=== PATIENT | male | born 1975 | race Caucasian/White ===

== ENCOUNTER 2018-11-21 12:34 | Observation (INO) | payer OTHER, SELFPAY ==
[2018-11-21 12:36] VITALS: BP 156/99; PULSE 78; RESP 16; TEMP 36.8; O2SAT 97; BMI 41.9
--- NOTE | 2018-11-21 12:42 | CT_ITS ---
STUDY: CT ABDOMEN AND PELVIS WITHOUT CONTRAST REASON FOR EXAM: Male, 42 years old. Kidneys down. Severe back pain. RADIATION DOSAGE (If Supplied By Facility): CTDIvol = ( 33.77 ) mGy, DLP = ( 2147.70 ) mGycm TECHNIQUE: Transaxial images were obtained from the dome of the diaphragm to the symphysis pubis without oral contrast, and without intravenous contrast. Sagittal and coronal images were reconstructed. Individualized dose optimization techniques were used for this CT. COMPARISON: None. FINDINGS: The visualized lung bases are unremarkable. The visualized portions of the heart are within normal limits. Normal liver. There are mobile calcified gallstones within the gallbladder fundus. There is no wall thickening or pericholecystic inflammatory process. There is no biliary ductal dilatation. Normal spleen. Normal pancreas. Normal bilateral adrenal glands. Normal right kidney. Normal left kidney. Normal bilateral ureters. Normal visualized stomach. Normal small intestine. Normal colon. The appendix is visualized and appears normal. There is diffuse atherosclerotic calcification of the abdominal aorta, without a demonstrated aneurysm. Normal inferior vena cava. Normal retroperitoneum. Normal urinary bladder. Normal prostate. There is no pelvic lymphadenopathy or mass. No free air or free fluid is seen within the peritoneal cavity. Normal abdominal wall. There are degenerative changes of the thoracolumbar spine. This is most marked at L4-5 where there is mild spinal stenosis. There is posterior fusion of L4-[address]/Abdomen/Pelvis without Cont IMPRESSION: 1. No evidence of renal, ureteral or urinary bladder abnormality. 2. Surgical changes and degenerative changes of the lower lumbar spine. 3. Gallstones without acute cholecystitis. 4. No other evidence of abdominal or pelvic abnormality. 5. Atherosclerotic changes of the abdominal aorta. Electronically Signed: Zeke Hawkins DO at 14:11 EST Tel [phone], Service support ,
--- NOTE | 2018-11-21 12:43 | ED.VISSUMM ---
- ER Visit Summary Date of Service: 11/21/18 Chief Complaint: Back pain History of Present Illness: The patient is a 42 M presents to the emergency department with atraumatic back pain. The patient has a history of prior back pain. He had multiple surgeries. He had discectomy with fusion. His last surgery was 6 years ago. He states over the past 4 days, he had a dull ache in his mid back that radiated in the left side. He states going down his leg and radiating to his testicle. He states normally, the pain is usually on the right. He denies any injury. He denies any fevers or chills. He had no problems with bowel or bladder. He has taken [id number] medication with little improvement. Physical Examination: Afebrile, vitals unremarkable. Well-appearing female no acute distress. Head is normocephalic, atraumatic. Pupil's equal round reactive, extraocular muscles intact. Neck supple. Heart regular rate and rhythm. Lungs clear, chest nontender. Abdomen soft, nontender, nondistended. No pulsatile mass. Patient has paraspinal tenderness in the lumbar area, but no bony tenderness. Straight leg raise is negative bilaterally. 2+ symmetric lower extremity pulses. 2+ reflexes. No clonus. No weakness of dorsiflexion, plantar flexion, or extensor hallucis longus bilaterally. Test Results: [] Emergency Department Course and Treatment: The patient's symptoms do seem most consistent with a radiculopathy. He has pain into his left buttock and left testicle. He has had no bowel or bladder problems. He was given IV analgesics with marked improvement of his pain. He was more comfortable. Screening labs obtained. His hemoglobin is mildly elevated, but he is a smoker. I did obtain CT imaging of the abdomen pelvis to rule out AAA or other dangerous process. This is unremarkable. There is marked postsurgical change in the back, but no fracture. Reevaluation, he is still rather uncomfortable. He was given IV Dilaudid. The patient still cannot stand to get up to the side of the bed. He has no weakness. However, given his significant pain despite multiple therapies, I do for the patient is in require observation for pain control and potential MRI. Treatment Plan: [] Disposition: Admission Impression: 1. Acute low back pain with radiculopathy This note was generated with Dragon dictation software. It may contain incorrect words, spelling, and punctuation that were not noted in review of the chart prior to signing ED Disposition - Plan for ED Patient: Chief Complaint: Back Instructions: ED Sciatica Prescriptions: Oxycodone HCl/Acetaminophen [Percocet 5/325] 1 tab PO Q6H PRN PRN 3 Days #12 tab PRN Reason: Pain MethylPREDNISolone DosePak [Medrol DosePak] 4 mg PO UD #1 box Naproxen [Naprosyn] 500 mg PO BID PRN #20 tab Referrals: Tram Stoner PA [Primary Care Provider] -
[2018-11-21] MEDS: 0.9% Normal Saline 1,000 ML 250 ML IV (13:06)
[2018-11-21] MEDS: Ondansetron 4 MG/2 ML Vial IV (13:06)
[2018-11-21] MEDS: morphine 8 MG/ML Syringe IV (13:08)
[2018-11-21] MEDS: Ketorolac 30 MG/ML Syringe IV (13:08)
[2018-11-21 13:19] LABS: Absolute Neutrophil Count 8.2 X10^3/uL (2.0-7.7); Basophil# 0.07 X10^3/uL; Basophil% 0.6 % (0-1); Eosinophil# 0.17 X10^3/uL; Eosinophils% 1.5 % (0-5); Hematocrit 52.9 % (40-54); Lymphocyte % 18.2 % (19-41); Mean Corp Hgb Conc 34.4 g/gl (32-36); Mean Corpuscular Hgb 30.2 pg (27.0-32.0); Mean Corpuscular Volume 87.9 fL (80-94); Monocyte# 1.02 X10^3/uL; Monocyte% 8.8 % (0-10); Neutrophil # 8.16 X10^3/uL (2.7-7.7); Neutrophil % 70.6 % (47-70); Platelet Count 327 K/mm3 (150-450); RBC Distribution Width CV 13.7 % (11.6-14.6); RBC Distribution Width SD 44.3 fl (35.1-43.9); Red Blood Count 6.02 M/mm3 (4.6-6.2); White Blood Count 11.6 K/mm3 (4.4-11.0)
[2018-11-21 13:20] LABS: Hemoglobin 18.2 g/dl (13.0-16.5); POSITIVE COUNT NO; POSITIVE DIFFERENTIAL NO; POSITIVE MORPHOLOGY NO
[2018-11-21 13:28] LABS: Anion Gap 7 (5-15); BUN 13 mg/dL (7-18); BUN/Creat Ratio 14.8 RATIO (10-20); Calcium,Total 8.8 mg/dL (8.5-10.1); Chloride 104 mmol/L (98-107); Creatinine, Serum 0.88 mg/dL (0.70-1.30); EST Glomerular Filtration Rate 100 mL/min (>60); Est Glom Filt Rate - Afr Amer 121 mL/min (>60); Estimated Creatinine Clearance 124.55 ml/min; Glucose 152 mg/dL (74-106); Potassium 3.9 mmol/L (3.5-5.1); Sodium Level 136 mmol/L (136-145)
[2018-11-21 14:22] VITALS: BP 158/84; PULSE 65; RESP 16; O2SAT 94
[2018-11-21] MEDS: HYDROmorphone 1 MG/ML Syringe IV ×3 (14:22→23:46)
[2018-11-21 14:32] VITALS: BP 153/84; PULSE 78; RESP 16; O2SAT 98
[2018-11-21] MEDS: Orphenadrine 60 MG/2 ML Ampul IV (14:58)
--- NOTE | 2018-11-21 14:58 | NURSING ---
MED SURG INTRACTABLE BACK PAIN ASHELFAH
[2018-11-21 15:02] VITALS: BP 153/78; PULSE 82; RESP 16; O2SAT 98
[2018-11-21] MEDS: Lidocaine 5% Patch 1 PATCH TOPICAL (15:10)
--- NOTE | 2018-11-21 15:10 | PCM.HP.STD ---
Problem List (1) Intractable low back pain Status: Acute (2) Chronic back pain Status: Chronic (3) Type 2 diabetes mellitus Status: Chronic (4) Hyperlipidemia Status: Chronic (5) Hypertension Status: Chronic History of Present Illness Date of Admission: 11/21/18 Chief Complaint: Low back pain. The patient is a 42 year old M with past medical history as mentioned above presented to the emergency room because of low back pain. His symptoms started around 4 days ago with low back pain, described as pulling pain sometimes sharp, 10 out of 10 in severity, with minimal radiation to the left thigh and around the testicles, aggravated by even slight movement, sitting or standing, minimally relieved with rest. He denied recent fall or trauma. He had a history of chronic back pain status post multiple back surgeries including vertebral fusions and discectomy, last surgery was 6 years ago. He denied urine or stool incontinence. He denied perianal numbness or tingling. In the emergency department, his blood pressure was slightly elevated, other vital signs were stable. His routine blood work was remarkable for minimal leukocytosis, hemoglobin of 18.2, otherwise normal. CT scan abdomen and pelvis without contrast revealed no evidence of acute intra-abdominal pathology, revealed degenerative changes of the thoracolumbar spine most marked at L4-L5 with mild spinal stenosis and prior L4-L5 fusion and L5 laminectomy. Patient received IV fluids, IV morphine, IV Toradol and IV Dilaudid in the ER as well as IV Norflex and his back pain minimally improved but he is able to put any weight on his feet. He is being admitted for intractable low back pain, spinal canal stenosis in context of history of chronic back pain and multiple back surgeries. Past Medical History Past Medical History (Chronic Problems): Chronic Problems Chronic back pain (Chronic) Type 2 diabetes mellitus (Chronic) Hyperlipidemia (Chronic) Hypertension (Chronic) Allergies No Known Allergies Allergy (Verified 11/21/18 12:35) Home Medications: Ambulatory Orders Medication Instructions Recorded Atorvastatin Calcium [Lipitor] 10 mg PO QHS 11/21/18 Exenatide [Byetta ([facility])] 11/21/18 Lisinopril/Hydrochlorothiazide 1 tab PO DAILY 11/21/18 [Lisinopril-Hctz 20-25 mg Tab] Metformin HCl [Metformin ER 1,000 mg PO DAILY 11/21/18 Gastric] MethylPREDNISolone DosePak [Medrol 4 mg PO UD #1 box 11/21/18 DosePak] Naproxen [Naprosyn] 500 mg PO BID PRN #20 tab 11/21/18 Oxycodone HCl/Acetaminophen 1 tab PO Q6H PRN PRN 3 Days #12 tab 11/21/18 [Percocet 5/325] Sitagliptin Phos/Metformin HCl 1 each PO DAILY 11/21/18 [Janumet 50-1,000 MG Tablet] Surgical History: - - Back surgeries x4, laminectomy, discectomy, fusion. Psychiatric History: No pertinent psych hx Lives: Spouse/ Significant Other Smoking Status: Current every day smoker Tobacco Use: Cigarettes Alcohol: Occasional Drugs: None - *Family History Maternal History Items: No pertinent history Paternal History Items: No pertinent history Review of Systems Constitutional: Denies: Anorexia, Chills, Fever, Weakness Eyes: Denies: Blurred vision, Double vision, Drainage, Redness HEENT: Denies: Difficulty Hearing, Ear Pain, Eye Pain, Nasal Congestion, Sore Throat Cardiovascular: Denies: Chest Pain, Chest Pressure, Edema, Heaviness, Light Headedness, Palpitations, Syncope Respiratory: Denies: Cough, Pleuritic Pain, Shortness of Breath, Sputum production, Wheezing Gastrointestinal: Denies: Abdominal Pain, Constipation, Diarrhea, Nausea, Vomiting Genitourinary: Denies: Dysuria, Frequency, Hematuria Musculoskeletal: Reports: Back Pain. Denies: Arm Pain, Foot Pain Skin: Denies: Dryness, Rash Neurological: Denies: Balance problems, Double vision, Change in Speech, Slurred speech, Confusion, Focal weakness, Headaches, Incoordination, Numbness, Tingling Psychiatric: Denies: Anxiety, Depression Endocrine: Denies: Change in Body Habitus, Polydipsia VTE Information - Inpt Only VTE Present on Admission: No VTE Mechan Device Prophylaxis: None VTE Pharm Prophylaxis ordered?: Yes Patient Problems: Active and Suspected Problems Intractable low back pain (Acute) - Physical Exam General: Alert, Oriented x3, Cooperative, No apparent distress HEENT: Atraumatic, PERRLA, EOMI, Normocephalic Oral: Moist Mucosa, No Gingival or Mucosal Lesions/ Ulcerations Neck: Supple, No JVD, Negative Carotid Bruits, Trachea Midline, Thyroid Normal Size and Texture Lungs: Clear to auscultation, Normal air movement, No wheeze, No rales Cardiovascular: Regular rate, Regular Rhythm, Normal S1, Normal S2, PMI Normal Abdomen: Bowel Sounds Present, Soft, Non Tender, Non-Distended, No Hepato-splenomegaly, Obese Extremities: No clubbing, No cyanosis, No edema Skin: No rashes, No breakdown Lymphatic: No Cervical, Supraclavicular, or Inguinal Adenopathy Neurological: Cranial nerves II-XII grossly intact, Motor Exam 5/5 strength throughout Psych/Mental Status: Normal Affect, Appropriate, Alert and oriented to time, place, person, mood and affect Vital Signs Temp Pulse Resp BP Pulse Ox 98.3 F 82 16 153/78 H 98 11/21/18 12:36 11/21/18 15:02 11/21/18 15:02 11/21/18 15:02 11/21/18 15:02 Oxygen Delivery Method Room Air Weight: 326 lb 8.073 oz Body Mass Index (BMI) 41.9 Laboratory Tests Past 24 Hrs 11/21/18 11/21/18 13:00 13:00 WBC 11.6 H RBC 6.02 Hgb 18.2 H* Hct 52.9 MCV 87.9 MCH 30.2 MCHC 34.4 RDW 13.7 RDW Differential 44.3 H Plt Count 327 MPV 10.0 Immature Gran % (Auto) 0.300 Neut % (Auto) 70.6 H Lymph % (Auto) 18.2 L [place] % (Auto) 8.8 Eos % (Auto) 1.5 Baso % (Auto) 0.6 Absolute Neuts (auto) 8.2 H Absolute Lymphs (auto) 2.10 Total Counted Not Reportable Sodium 136 Potassium 3.9 Chloride 104 Carbon Dioxide 25.0 Anion Gap 7 BUN 13 Creatinine 0.88 Estim Creat Clear Calc 124.55 Est GFR (MDRD) Af Amer 121 Est GFR (MDRD) Non-Af 100 BUN/Creatinine Ratio 14.8 Glucose 152 H Calcium 8.8 Clinical Impression(s) from Imaging Studies Abdomen/Pelvis CT 11/21/18 12:42 IMPRESSION: 1. No evidence of renal, ureteral or urinary bladder abnormality. 2. Surgical changes and degenerative changes of the lower lumbar spine. 3. Gallstones without acute cholecystitis. 4. No other evidence of abdominal or pelvic abnormality. 5. Atherosclerotic changes of the abdominal aorta. Electronically Signed: Zeke Hawkins DO at 14:11 EST Tel [phone], Service support , Assessment/Plan All Active Problems Intractable low back pain (Acute) This is a 42 years old male patient presented to the emergency room because of low back pain in context of history of chronic back pain status post multiple back surgeries, receiving different IV pain medications without improvement and he is being admitted for intractable low back pain for treatment and evaluation. #1 intractable low back pain/spinal canal stenosis: Patient received IV Toradol, IV morphine, IV Dilaudid and IV Norflex in the ER with no improvement. He is not able to put any weight on his feet. Blood pressure slightly elevated. Routine blood work remarkable for hemoglobin of more than 18 g/dL, hemoconcentration, otherwise normal. CT scan abdomen and pelvis without contrast reviewed as above. Plan: Admit to [facility] floor, bedrest, ambulate as directed, IV Dilaudid as needed for pain, IV Decadron, OxyIR as needed, Flexeril as needed, MRI lumbar spine, IV fluids, Tylenol as needed, Zofran as needed, repeat CBC tomorrow morning, PT OT duration of treatment. #2 dehydration: Indicated by dry mucous membranes and elevated hemoglobin, hemoconcentration. Kidney function is normal. Plan: IV fluids, input output chart, repeat CBC tomorrow morning. #3 type 2 diabetes mellitus: ADA diet, Accu-Cheks, insulin sliding scale, continue metformin, Janumet and Byetta. #4 hypertension: Blood pressure slightly elevated because of pain, continue lisinopril, HCTZ, start IV hydralazine as needed. #5 hyperlipidemia: Continue statins. #6 DVT prophylaxis: Subcu Lovenox. This note was generated with [employer] dictation software. It may contain incorrect words, spelling, and punctuation that were not noted in checking the note before signing. Code Visit Inpatient E&M: 13512 Init Hosp L3
--- NOTE | 2018-11-21 15:14 | HP.PCM_ITS ---
Problem List (1) Intractable low back pain Status: Acute (2) Chronic back pain Status: Chronic (3) Type 2 diabetes mellitus Status: Chronic (4) Hyperlipidemia Status: Chronic (5) Hypertension Status: Chronic History of Present Illness Date of Admission: 11/21/18 Chief Complaint: Low back pain. The patient is a 42 year old M with past medical history as mentioned above presented to the emergency room because of low back pain. His symptoms started around 4 days ago with low back pain, described as pulling pain sometimes sharp, 10 out of 10 in severity, with minimal radiation to the left thigh and around the testicles, aggravated by even slight movement, sitting or standing, minim ally relieved with rest. He denied recent fall or trauma. He had a history of chronic back pain status post multiple back surgeries including vertebral fusions and discectomy, last surgery was 6 years ago. He denied urine or stool incontinence. He denied perianal numbness or tingling. In the emergency department, his blood pressure was slightly elevated, other vital signs were stable. His routine blood work was remarkable for minimal leukocytosis, hemoglobin of 18.2, otherwise normal. CT scan abdomen and pelvis without contrast revealed no evidence of acute intra-abdominal pathology, revealed degenerative changes of the thoracolumbar spine most marked at L4-L5 with mild spinal stenosis and prior L4-L5 fusion and L5 laminectomy. Patient received IV fluids, IV morphine, IV Toradol and IV Dilaudid in the ER as well as IV Norflex and his back pain minimally improved but he is able to put any weight on his feet. He is being admitted for intractable low back pain, spinal canal stenosis in context of history of chronic back pain and multiple back surgeries. Past Medical History Past Medical History (Chronic Problems): Chronic Problems Chronic back pain (Chronic) Type 2 diabetes mellitus (Chronic) Hyperlipidemia (Chronic) Hypertension (Chronic) Allergies No Known Allergies Allergy (Verified 11/21/18 12:35) Home Medications: Ambulatory Orders Medication Instructions Recorded Atorvastatin Calcium [Lipitor] 10 mg PO QHS 11/21/18 Exenatide [Byetta ([facility])] 11/21/18 Lisinopril/Hydrochlorothiazide 1 tab PO DAILY 11/21/18 [Lisinopril-Hctz 20-25 mg Tab] Metformin HCl [Metformin ER 1,000 mg PO DAILY 11/21/18 Gastric] MethylPREDNISolone DosePak [Medrol 4 mg PO UD #1 box 11/21/18 DosePak] Naproxen [Naprosyn] 500 mg PO BID PRN #20 tab 11/21/18 Oxycodone HCl/Acetaminophen 1 tab PO Q6H PRN PRN 3 Days #12 tab 11/21/18 [Percocet 5/325] Sitagliptin Phos/Metformin HCl 1 each PO DAILY 11/21/18 [Janumet 50-1,000 MG Tablet] Surgical History: - - Back surgeries x4, laminectomy, discectomy, fusion. Psychiatric History: No pertinent psych hx Lives: Spouse/ Significant Other Smoking Status: Current every day smoker Tobacco Use: Cigarettes Alcohol: Occasional Drugs: None - *Family History Maternal History Items: No pertinent history Paternal History Items: No pertinent history Review of Systems Constitutional: Denies: Anorexia, Chills, Fever, Weakness Eyes: Denies: Blurred vision, Double vision, Drainage, Redness HEENT: Denies: Difficulty Hearing, Ear Pain, Eye Pain, Nasal Congestion, Sore Throat Cardiovascular: Denies: Chest Pain, Chest Pressure, Edema, Heaviness, Light Headedness, Palpitations, Syncope Respiratory: Denies: Cough, Pleuritic Pain, Shortness of Breath, Sputum production, Wheezing Gastrointestinal: Denies: Abdominal Pain, Constipation, Diarrhea, Nausea, Vomiting Genitourinary: Denies: Dysuria, Frequency, Hematuria Musculoskeletal: Reports: Back Pain. Denies: Arm Pain, Foot Pain Skin: Denies: Dryness, Rash Neurological: Denies: Balance problems, Double vision, Change in Speech, Slurred speech, Confusion, Focal weakness, Headaches, Incoordination, Numbness, Tingling Psychiatric: Denies: Anxiety, Depression Endocrine: Denies: Change in Body Habitus, Polydipsia VTE Information - Inpt Only VTE Present on Admission: No VTE Mechan Device Prophylaxis: None VTE Pharm Prophylaxis ordered?: Yes Patient Problems: Active and Suspected Problems Intractable low back pain (Acute) - Physical Exam General: Alert, Oriented x3, Cooperative, No apparent distress HEENT: Atraumatic, PERRLA, EOMI, Normocephalic Oral: Moist Mucosa, No Gingival or Mucosal Lesions/ Ulcerations Neck: Supple, No JVD, Negative Carotid Bruits, Trachea Midline, Thyroid Normal Size and Texture Lungs: Clear to auscultation, Normal air movement, No wheeze, No rales Cardiovascular: Regular rate, Regular Rhythm, Normal S1, Normal S2, PMI Normal Abdomen: Bowel Sounds Present, Soft, Non Tender, Non-Distended, No Hepato- splenomegaly, Obese Extremities: No clubbing, No cyanosis, No edema Skin: No rashes, No breakdown Lymphatic: No Cervical, Supraclavicular, or Inguinal Adenopathy Neurological: Cranial nerves II-XII grossly intact, Motor Exam 5/5 strength throughout Psych/Mental Status: Normal Affect, Appropriate, Alert and oriented to time, place, person, mood and affect Vital Signs Temp Pulse Resp BP Pulse Ox 98.3 F 82 16 153/78 H 98 11/21/18 12:36 11/21/18 15:02 11/21/18 15:02 11/21/18 15:02 11/21/18 15:02 Oxygen Delivery Method Room Air Weight: 326 lb 8.073 oz Body Mass Index (BMI) 41.9 Laboratory Tests Past 24 Hrs 11/21/18 11/21/18 13:00 13:00 WBC 11.6 H RBC 6.02 Hgb 18.2 H* Hct 52.9 MCV 87.9 MCH 30.2 MCHC 34.4 RDW 13.7 RDW Differential 44.3 H Plt Count 327 MPV 10.0 Immature Gran % (Auto) 0.300 Neut % (Auto) 70.6 H Lymph % (Auto) 18.2 L [place] % (Auto) 8.8 Eos % (Auto) 1.5 Baso % (Auto) 0.6 Absolute Neuts (auto) 8.2 H Absolute Lymphs (auto) 2.10 Total Counted Not Reportable Sodium 136 Potassium 3.9 Chloride 104 Carbon Dioxide 25.0 Anion Gap 7 BUN 13 Creatinine 0.88 Estim Creat Clear Calc 124.55 Est GFR (MDRD) Af Amer 121 Est GFR (MDRD) Non-Af 100 BUN/Creatinine Ratio 14.8 Glucose 152 H Calcium 8.8 Clinical Impression(s) from Imaging Studies Abdomen/Pelvis CT 11/21/18 12:42 IMPRESSION: 1. No evidence of renal, ureteral or urinary bladder abnormality. 2. Surgical changes and degenerative changes of the lower lumbar spine. 3. Gallstones without acute cholecystitis. 4. No other evidence of abdominal or pelvic abnormality. 5. Atherosclerotic changes of the abdominal aorta. Electronically Signed: Zeke Hawkins DO at 14:11 EST Tel [phone], Service support , Assessment/Plan All Active Problems Intractable low back pain (Acute) This is a 42 years old male patient presented to the emergency room because of low back pain in context of history of chronic back pain status post multiple back surgeries, receiving different IV pain medications without improvement and he is being admitted for intractable low back pain for treatment and evaluation. #1 intractable low back pain/spinal canal stenosis: Patient received IV Toradol, IV morphine, IV Dilaudid and IV Norflex in the ER with no improvement. He is not able to put any weight on his feet. Blood pressure slightly elevated. Routine blood work remarkable for hemoglobin of more than 18 g/dL, hemoconcentration, otherwise normal. CT scan abdomen and pelvis without contrast reviewed as above. Plan[facility], bed[facility], ambulate as directed, IV Dilaudid as needed for pain, IV Decadron, OxyIR as needed, Flexeril as needed, MRI lumbar spine, IV fluids, Tylenol as needed, Zofran as needed, repeat CBC tomorrow morning, PT OT duration of treatment. #2 dehydration: Indicated by dry mucous membranes and elevated hemoglobin, hemoconcentration. Kidney function is normal. Plan: IV fluids, input output chart, repeat CBC tomorrow morning. #3 type 2 diabetes mellitus: ADA diet, Accu-Cheks, insulin sliding scale, continue metformin, Janumet and Byetta. #4 hypertension: Blood pressure slightly elevated because of pain, continue lisinopril, HCTZ, start IV hydralazine as needed. #5 hyperlipidemia: Continue statins. #6 DVT prophylaxis: Subcu Lovenox. This note was generated with [employer] dictation software. It may contain incorrect words, spelling, and punctuation that were not noted in checking the note before signing. Code Visit Inpatient E&M: 67986 Init Hosp L3
--- NOTE | 2018-11-21 15:36 | MRI_ITS ---
HISTORY: LBP. Lower Back Pain, h/o prior sx, unsure of new injury, pain x 4 days EXAM/TECHNIQUE: MR Spine Lumbar W/O Contrast: COMPARISON: CT abdomen and pelvis 11/21/18. FINDINGS: # of images incl. paperwork: 133 No acute fracture. No acute signal changes in the vertebrae. The patient is status post L5-S1 discectomy, posterior fusion and laminectomy. 6 mm degenerative anterolisthesis of L5 on S1 again demonstrated. Alignment otherwise anatomic. Again demonstrated is multilevel disc and facet degeneration particularly at L3-4 and L4-5. At L3-4, there is near complete disc space loss and endplate degenerative signal changes and irregularity. At L4-5, there is partial bony fusion of the posterior aspect of the disc space and less prominent degenerative signal changes. The conus nodularis terminates at the level of the T12-L1 disc with normal contour and signal. Paraspinal soft tissues unremarkable. At L1-2, mild facet degeneration causes only mild narrowing. At L2-3, a left paracentral disc extrusion with inferior migration, superimposed upon a diffuse disc bulge, causes focal marked narrowing of the left subarticular zone, displacing posteriorly and probably compressing the traversing left L3 nerve root. Mild right and moderate left foraminal narrowing but with no evidence of foraminal nerve root impingement. At L3-4, diffuse disc bulge, greater on the right, and moderate bilateral facet degeneration cause moderate spinal canal and mild bilateral foraminal narrowing. Disc and ligamentum flavum abut but do not definitively compress the traversing bilateral L4 nerve roots in the subarticular zones. At L4-5, the spinal canal is decompressed via laminectomy. Osteophytes mildly narrow the bilateral foramina but with no evidence of foraminal nerve root impingement. At L5-S1, the spinal canal is decompressed via laminectomy. Osteophytes extend into and moderately narrow the bilateral foramina, combining with 6 mm degenerative anterolisthesis. MRI/Spine Lumbar (Routine) IMPRESSION: At L2-3, a left paracentral disc extrusion with inferior migration, superimposed upon a diffuse disc bulge, causes focal marked narrowing of the left subarticular zone, displacing posteriorly and probably compressing the traversing left L3 nerve root. If there is left L3 radiculopathy this is likely the cause. Moderate narrowing of the bilateral subarticular zones at L3-4 (please correlate for either side L4 radiculopathy) and bilateral foramina at L5-S1 (please correlate for either side L5 radiculopathy). Status post posterior fusion, discectomy and laminectomy at L5-S1. at 0937 Reported and signed by: Michael Coley MD Electronically Signed: Michael Coley, at 9:36 EST Tel , Service support ,
[2018-11-21 15:37] VITALS: BMI 41.9
[2018-11-21 15:40] VITALS: BP 129/72; PULSE 69; RESP 16; TEMP 36.6; O2SAT 92
[2018-11-21 15:58] VITALS: BMI 41.9
[2018-11-21 17:56] LABS: Bedside Glucose 146 mg/dL (70-110)
[2018-11-21] MEDS: 0.9% Normal Saline 1,000 ML 100 ML IV (19:00)
[2018-11-21 21:07] VITALS: BP 142/78; PULSE 71; RESP 14; TEMP 36.9; O2SAT 94
[2018-11-21] MEDS: Docusate Sodium 100 MG Capsule PO (21:21)
[2018-11-21] MEDS: Atorvastatin Calcium 10 MG Tablet PO (21:21)
[2018-11-21] MEDS: Insulin Lispro 100 UNIT/ML INSULN.PEN SC (21:29)
[2018-11-21 23:10] LABS: Bedside Glucose 202 mg/dL (70-110)
[2018-11-22] MEDS: 0.9% Normal Saline 1,000 ML 100 ML IV (01:50)
[2018-11-22 02:14] VITALS: BP 120/79; PULSE 68; RESP 14; TEMP 36.6; O2SAT 95
[2018-11-22] MEDS: oxyCODONE 5 MG Tablet PO ×2 (02:32→09:46)
[2018-11-22] MEDS: HYDROmorphone 1 MG/ML Syringe IV ×4 (04:08→14:27)
[2018-11-22 06:01] LABS: Absolute Lymphocyte Count 1.51 X10^3/ul (0.83-4.51); Absolute Neutrophil Count 8.4 X10^3/uL (2.0-7.7); Basophil# 0.02 X10^3/uL; Basophil% 0.2 % (0-1); Eosinophil# 0.01 X10^3/uL; Eosinophils% 0.1 % (0-5); Hematocrit 50.5 % (40-54); Hemoglobin 16.9 g/dl (13.0-16.5); Lymphocyte # 1.51 X10^3/ul (4.0); Lymphocyte % 14.1 % (19-41); Mean Corp Hgb Conc 33.5 g/gl (32-36); Mean Corpuscular Volume 89.5 fL (80-94); Mean Platelet Vol. 9.9 fl (6.2-12.0); Monocyte% 6.5 % (0-10); Neutrophil # 8.44 X10^3/uL (2.7-7.7); Neutrophil % 78.8 % (47-70); Platelet Count 307 K/mm3 (150-450); RBC Distribution Width CV 13.8 % (11.6-14.6); RBC Distribution Width SD 45.8 fl (35.1-43.9); Red Blood Count 5.64 M/mm3 (4.6-6.2); White Blood Count 10.7 K/mm3 (4.4-11.0)
[2018-11-22 06:14] LABS: POSITIVE COUNT NO; POSITIVE DIFFERENTIAL NO; POSITIVE MORPHOLOGY NO
[2018-11-22] MEDS: Insulin Lispro 100 UNIT/ML INSULN.PEN SC ×2 (06:46→12:41)
[2018-11-22 06:56] LABS: Bedside Glucose 193 mg/dL (70-110)
[2018-11-22 07:36] VITALS: O2SAT 95
[2018-11-22] MEDS: 0.9% NaCl Peripheral Flush Adult/Peds IV ×5 (07:52→14:27)
[2018-11-22 07:56] VITALS: BP 129/92; PULSE 83; RESP 18; TEMP 36.8; O2SAT 93
--- NOTE | 2018-11-22 08:34 | PCM.PN.HOSP ---
Patient Problems: Active and Suspected Problems Intractable low back pain (Acute) Subjective: The patient has ongoing back pain lumbar region and radiculopathy to the LLE. He notes prior he had issues with his RLE with the radiculopathy. He and his notes his neurosurgeon has long since retired. Discussed plan of care and patient noted in the past had tried Lyrica with some lower extremity edema and no clinical effect but is willing to trial gabapentin. Pending MRI and notes that if remarkable with possible intervention needs amenable to transfer and per discussions consideration for [facility] pending case management. Patient also notes no recent bowel movement since worsened pain and decreased mobility. Patient denies fevers, chills, nausea, emesis, abdominal pain, chest pain or dyspnea. Objective: Physical Examination: General: awake, alert, oriented x 3 and cooperative, seated upright in bed appears uncomfortable, mild grimace noted. Skin: normal color, turgor, no icterus, cyanosis. HEENT: AT/NC, EOMI, PERRLA, MMM. Lungs: CTA bilaterally, moderate effort, mild decrease BL bases, no rales, ronchi or wheezing. Heart: Regular rate and rhythm; no gallop, rub audible. Abdomen: soft, morbidly obese, NTTP, ND, mildly decreased BS. Extremities: no cyanosis, clubbing, or edema. Neurological: patient awake, alert, oriented x 3; cognitive function intact; pupils equally reactive to light and accomodation; cranial nerves II-XII grossly normal, moving all 4 extremities but limited movement given intractable lumbar back pain, + SLR BL, sensation intact, TTP paraspinous regions, strength accordingly severe globally decreased, no focal deficits or sensation deficits. Psychiatric: affect appears fatigued, strained, no acute evidence of depressive or anxiety feelings. Vitals/I&O's: Vital Signs Temp Pulse Resp BP Pulse Ox 98.3 F 83 18 129/92 H 93 11/22/18 07:56 11/22/18 07:56 11/22/18 07:56 11/22/18 07:56 11/22/18 07:56 Oxygen Delivery Method Room Air Weight: 326 lb 8.073 oz Body Mass Index (BMI) 41.9 Intake and Output for Last 24 Hours 11/20/18 11/21/18 11/22/18 23:59 23:59 23:59 Intake Total 725 / 725 1273 / 1273 Output Total 500 / 500 Balance 725 / 725 773 / 773 Laboratory Results 11/21/18 13:00: WBC 11.6 H, RBC 6.02, Hgb 18.2 H*, Hct 52.9, MCV 87.9, MCH 30.2, MCHC 34.4, RDW 13.7, RDW Differential 44.3 H, Plt Count 327, MPV 10.0, Immature Gran % (Auto) 0.300, Neut % (Auto) 70.6 H, Lymph % (Auto) 18.2 L, Haskell % (Auto) 8.8, Eos % (Auto) 1.5, Baso % (Auto) 0.6, Absolute Neuts (auto) 8.2 H, Absolute Lymphs (auto) 2.10, Total Counted Not Reportable 11/21/18 13:00: Sodium 136, Potassium 3.9, Chloride 104, Carbon Dioxide 25.0, Anion Gap 7, BUN 13, Creatinine 0.88, Estim Creat Clear Calc 124.55, Est GFR (MDRD) Af Amer 121, Est GFR (MDRD) Non-Af 100, BUN/Creatinine Ratio 14.8, Glucose 152 H, Calcium 8.8 11/21/18 16:29: POC Glucose 146 H 11/21/18 21:25: POC Glucose 202 H 11/22/18 05:30: WBC 10.7, RBC 5.64, Hgb 16.9 H, Hct 50.5, MCV 89.5, MCH 30.0, MCHC 33.5, RDW 13.8, RDW Differential 45.8 H, Plt Count 307, MPV 9.9, Immature Gran % (Auto) 0.300, Neut % (Auto) 78.8 H, Lymph % (Auto) 14.1 L, Haskell % (Auto) 6.5, Eos % (Auto) 0.1, Baso % (Auto) 0.2, Absolute Neuts (auto) 8.4 H, Absolute Lymphs (auto) 1.51, Total Counted Not Reportable 11/22/18 06:45: POC Glucose 193 H Current Medications Acetaminophen (Tylenol) 650 mg PO Q6H PRN PRN PRN Reason: Fever, headache, pain Atorvastatin Calcium (Lipitor) 10 mg PO QHS [facility] Last Admin: 11/21/18 21:21 Dose: 10 mg Cyclobenzaprine HCl (Flexeril) 10 mg PO TID PRN PRN PRN Reason: MUSCLE SPASM Last Admin: 11/22/18 02:32 Dose: 10 mg Dexamethasone Sodium Phosphate (Decadron) 4 mg IV Q8 [facility] Stop: 11/22/18 22:01 Last Admin: 11/22/18 06:41 Dose: 4 mg Docusate Sodium (Colace) 100 mg PO BID [facility] Last Admin: 11/21/18 21:21 Dose: 100 mg Enoxaparin Sodium (Lovenox) 40 mg SC DAILY [facility] Hydralazine HCl (Apresoline Iv) 10 mg IV Q8H PRN PRN PRN Reason: for SBP>160 Hydrochlorothiazide (Hctz) 25 mg PO DAILY [facility] Hydromorphone HCl (Dilaudid Inj) 1 - 2 mg IV Q4H PRN PRN PRN Reason: SEVERE PAIN (6-10/10) Last Admin: 11/22/18 07:53 Dose: 1 mg Sodium Chloride () 1,000 mls @ 100 mls/hr IV .Q10H [facility] Stop: 11/22/18 11:35 Last Admin: 11/22/18 01:50 Dose: 100 mls/hr Insulin Human Lispro (Humalog Kwikpen (Bkc)) 0 unit SC [facility]; Protocol Last Admin: 11/22/18 06:46 Dose: 1 [facility] Lisinopril (Zestril) 20 mg PO DAILY [facility] Magnesium Hydroxide (Milk Of Magnesia) 30 ml PO DAILY PRN PRN PRN Reason: Constipation Metformin HCl (Glucophage Xr) 1,000 mg PO DAILYCM [facility] Metformin HCl (Glucophage Xr) 1,000 mg PO DAILYCM [facility] Ondansetron HCl (Zofran) 4 mg IV Q6H PRN PRN PRN Reason: NAUSEA/VOMITING Oxycodone HCl (Oxyir) 5 mg PO Q6H PRN PRN PRN Reason: SEVERE PAIN (6-10/10) Last Admin: 11/22/18 02:32 Dose: 5 mg Sodium Chloride () 5 - 15 ml IV UD PRN PRN Reason: SALINE FLUSH Last Admin: 11/22/18 07:52 Dose: 15 ml Medical Necessity - Tobacco Use Smoking Status: Current every day smoker Tobacco Use: Cigarettes Assessment/Plan All Active Problems Intractable low back pain (Acute) The patient is a 42 y/o M w/ PMHx: Morbid Obesity, Diabetes mellitus type II, HTN, HLD, Chronic back pain s/p surgical intervention who presents to the [facility] ED on 11/21/18 secondary to acute on chronic lumbar back pain w/ LLE radiculopathy. (1) Acute on Chronic Lumbar Intractable Back Pain w/ LLE Radiculopathy w/ Spinal Canal Stenosis: ED evaluation w/ CT A/P without contrast revealed no evidence of acute intra-abdominal pathology, revealed degenerative changes of the thoracolumbar spine most marked at L4-L5 with mild spinal stenosis and prior L4-L5 fusion and L5 laminectomy, maintain on fall precautions, frequent positioning, po/IV pain regimen, flexeril PRN, IV decadron, add scheduled Toradol x 5 doses, add low dose gabapentin per discussion with patient, anti-emetics, add bowel regimen. PT and OT following. Pending MRI lumbar spine. If transfer needed patient amenable to [facility] pending insurance clarifications w/ CM. (2) Hypertension: Continue home regimen including lisinopril, hydrochlorothiazide, PRN hydralazine. (3) Hyperlipidemia: Continue home statin regimen. (4) Diabetes mellitus type II: Hold oral home regimen, ADA diet, accu checks w/ ISS, patient consulted for education and teaching. (5) Morbid Obesity: Weight loss and lifestyle changes encouraged, nutrition consulted. (6) DVT Prophylaxis: cristo Byrd. Code Visit Inpatient E&M: 19343 Subs Hosp L2
--- NOTE | 2018-11-22 08:43 | PN_ITS ---
Patient Problems: Active and Suspected Problems Intractable low back pain (Acute) Subjective: The patient has ongoing back pain lumbar region and radiculopathy to the LLE. He notes prior he had issues with his RLE with the radiculopathy. He and his notes his neurosurgeon has long since retired. Discussed plan of care and anuja garnica noted in the past had tried Lyrica with some lower extremity edema and no clinical effect but is willing to trial gabapentin. Pending MRI and notes that if remarkable with possible intervention needs amenable to transfer and per discussions consideration for [facility] pending case management. Patient also notes no recent bowel movement since worsened pain and decreased mobility. Patient denies fevers, chills, nausea, emesis, abdominal pain, chest pain or dyspnea. Objective: Physical Examination: General: awake, alert, oriented x 3 and cooperative, seated upright in bed appears uncomfortable, mild grimace noted. Skin: normal color, turgor, no icterus, cyanosis. HEENT: AT/NC, EOMI, PERRLA, MMM. Lungs: CTA bilaterally, moderate effort, mild decrease BL bases, no rales, ronchi or wheezing. Heart: Regular rate and rhythm; no gallop, rub audible. Abdomen: soft, morbidly obese, NTTP, ND, mildly decreased BS. Extremities: no cyanosis, clubbing, or edema. Neurological: patient awake, alert, oriented x 3; cognitive function intact; pupils equally reactive to light and accomodation; cranial nerves II-XII grossly normal, moving all 4 extremities but limited movement given intractable lumbar back pain, + SLR BL, sensation intact, TTP paraspinous regions, strength accordingly severe globally decreased, no focal deficits or sensation deficits. Psychiatric: affect appears fatigued, strained, no acute evidence of depressive or anxiety feelings. Vitals/I&O's: Vital Signs Temp Pulse Resp BP Pulse Ox 98.3 F 83 18 129/92 H 93 11/22/18 07:56 11/22/18 07:56 11/22/18 07:56 11/22/18 07:56 11/22/18 07:56 Oxygen Delivery Method Room Air Weight: 326 lb 8.073 oz Body Mass Index (BMI) 41.9 Intake and Output for Last 24 Hours 11/20/18 11/21/18 11/22/18 23:59 23:59 23:59 Intake Total 725 / 725 1273 / 1273 Output Total 500 / 500 Balance 725 / 725 773 / 773 Laboratory Results 11/21/18 13:00: WBC 11.6 H, RBC 6.02, Hgb 18.2 H*, Hct 52.9, MCV 87.9, MCH 30.2, MCHC 34.4, RDW 13.7, RDW Differential 44.3 H, Plt Count 327, MPV 10.0, Immature Gran % (Auto) 0.300, Neut % (Auto) 70.6 H, Lymph % (Auto) 18.2 L, Mcmullen % (Auto) 8.8, Eos % (Auto) 1.5, Baso % (Auto) 0.6, Absolute Neuts (auto) 8.2 H, Absolute Lymphs (auto) 2.10, Total Counted Not Reportable 11/21/18 13:00: Sodium 136, Potassium 3.9, Chloride 104, Carbon Dioxide 25.0, Anion Gap 7, BUN 13, Creatinine 0.88, Estim Creat Clear Calc 124.55, Est GFR (MDRD) Af Amer 121, Est GFR (MDRD) Non-Af 100, BUN/Creatinine Ratio 14.8, Glucose 152 H, Calcium 8.8 11/21/18 16:29: POC Glucose 146 H 11/21/18 21:25: POC Glucose 202 H 11/22/18 05:30: WBC 10.7, RBC 5.64, Hgb 16.9 H, Hct 50.5, MCV 89.5, MCH 30.0, MCHC 33.5, RDW 13.8, RDW Differential 45.8 H, Plt Count 307, MPV 9.9, Immature Gran % (Auto) 0.300, Neut % (Auto) 78.8 H, Lymph % (Auto) 14.1 L, Mcmullen % (Auto) 6.5, Eos % (Auto) 0.1, Baso % (Auto) 0.2, Absolute Neuts (auto) 8.4 H, Absolute Lymphs (auto) 1.51, Total Counted Not Reportable 11/22/18 06:45: POC Glucose 193 H Current Medications Acetaminophen (Tylenol) 650 mg PO Q6H PRN PRN PRN Reason: Fever, headache, pain Atorvastatin Calcium (Lipitor) 10 mg PO QHS [facility] Last Admin: 11/21/18 21:21 Dose: 10 mg Cyclobenzaprine HCl (Flexeril) 10 mg PO TID PRN PRN PRN Reason: MUSCLE SPASM Last Admin: 11/22/18 02:32 Dose: 10 mg Dexamethasone Sodium Phosphate (Decadron) 4 mg IV Q8 [facility] Stop: 11/22/18 22:01 Last Admin: 11/22/18 06:41 Dose: 4 mg Docusate Sodium (Colace) 100 mg PO BID [facility] Last Admin: 11/21/18 21:21 Dose: 100 mg Enoxaparin Sodium (Lovenox) 40 mg SC DAILY [facility] Hydralazine HCl (Apresoline Iv) 10 mg IV Q8H PRN PRN PRN Reason: for SBP>160 Hydrochlorothiazide (Hctz) 25 mg PO DAILY [facility] Hydromorphone HCl (Dilaudid Inj) 1 - 2 mg IV Q4H PRN PRN PRN Reason: SEVERE PAIN (6-10/10) Last Admin: 11/22/18 07:53 Dose: 1 mg Sodium Chloride () 1,000 mls @ 100 mls/hr IV .Q10H [facility] Stop: 11/22/18 11:35 Last Admin: 11/22/18 01:50 Dose: 100 mls/hr Insulin Human Lispro (Humalog Kwikpen (Bkc)) 0 unit SC [facility]; Protocol Last Admin: 11/22/18 06:46 Dose: 1 units [facility] ([facility]) [facility] Lisinopril (Zestril) 20 mg PO DAILY [facility] Magnesium Hydroxide (Milk Of Magnesia) 30 ml PO DAILY PRN PRN PRN Reason: Constipation Metformin HCl (Glucophage Xr) 1,000 mg PO DAILYCM [facility] Metformin HCl (Glucophage Xr) 1,000 mg PO DAILYCM [facility] Ondansetron HCl (Zofran) 4 mg IV Q6H PRN PRN PRN Reason: NAUSEA/VOMITING Oxycodone HCl (Oxyir) 5 mg PO Q6H PRN PRN PRN Reason: SEVERE PAIN (6-10/10) Last Admin: 11/22/18 02:32 Dose: 5 mg Sodium Chloride () 5 - 15 ml IV UD PRN PRN Reason: SALINE FLUSH Last Admin: 11/22/18 07:52 Dose: 15 ml Medical Necessity - Tobacco Use Smoking Status: Current every day smoker Tobacco Use: Cigarettes Assessment/Plan All Active Problems Intractable low back pain (Acute) The patient is a 42 y/o M w/ PMHx: Morbid Obesity, Diabetes mellitus type II, HTN, HLD, Chronic back pain s/p surgical intervention who presents to the [facility] ED on 11/21/18 secondary to acute on chronic lumbar back pain w/ LLE radiculopathy. (1) Acute on Chronic Lumbar Intractable Back Pain w/ LLE Radiculopathy w/ Spinal Canal Stenosis: ED evaluation w/ CT A/P without contrast revealed no evidence of acute intra-abdominal pathology, revealed degenerative changes of the thoracolumbar spine most marked at L4-L5 with mild spinal stenosis and prior L4- L5 fusion and L5 laminectomy, maintain on fall precautions, frequent positioning, po/IV pain regimen, flexeril PRN, IV decadron, add scheduled Toradol x 5 doses, add low dose gabapentin per discussion with patient, anti- emetics, add bowel regimen. PT and OT following. Pending MRI lumbar spine. If transfer needed patient amenable to [facility] pending insurance clarifications w/ CM. (2) Hypertension: Continue home regimen including lisinopril, hydrochlorothiazide, PRN hydralazine. (3) Hyperlipidemia: Continue home statin regimen. (4) Diabetes mellitus type II: Hold oral home regimen, ADA diet, accu checks w/ ISS, patient consulted for education and teaching. (5) Morbid Obesity: Weight loss and lifestyle changes encouraged, nutrition consulted. (6) DVT Prophylaxis: SCDs, sandeepx. Code Visit Inpatient E&M: 67455 Subs Hosp L2
--- NOTE | 2018-11-22 09:44 | CASEMGMT ---
Tertiary hospital in-network with insurance: [facility], [facility], [place], [facility], [facility], [facility].
[2018-11-22] MEDS: Enoxaparin 40 MG/0.4 ML Syringe SC (09:45)
[2018-11-22] MEDS: Ketorolac 30 MG/ML Syringe IV ×2 (09:46→13:25)
[2018-11-22] MEDS: Acetaminophen 325 MG Tablet 650 MG PO (09:47)
[2018-11-22] MEDS: Pantoprazole Sodium 40 MG Tablet PO (09:47)
[2018-11-22] MEDS: Lisinopril 20 MG Tablet PO (09:47)
[2018-11-22] MEDS: Gabapentin 100 MG Capsule PO ×2 (09:47→13:25)
[2018-11-22] MEDS: hydroCHLOROthiazide 25 MG Tablet PO (09:48)
--- NOTE | 2018-11-22 11:02 | DS.PCM_ITS ---
Discharge Date and Diagnosis - Problem List Patient Problems: Active and Suspected Problems Intractable low back pain (Acute) Date of Admission: 11/21/18 Date of Discharge: 11/22/18 - Primary Discharge Diagnosis Active and Suspected Problems (1) Acute on Chronic Intractable Lumbar Back pain w/ Radiculopathy L sided secondary to L2-3 left paracentral disc extrusion with inferior migration superimposed upon diffuse disc bulge with focal market narrowing of left subarticular zone displacing posteriorly and compressing transversing left L3 nerve josué (2) Hypertension (3) Hyperlipidemia (4) Diabetes mellitus type II (5) Morbid Obesity - Secondary Discharge Diagnosis Chronic Problems Chronic back pain (Chronic) Type 2 diabetes mellitus (Chronic) Hyperlipidemia (Chronic) Hypertension (Chronic) Hospital Course and Treatment Imaging Results: MRI Lumbar Spine w/ L2-3 left paracentral disc extrusion with inferior migration superimposed upon a diffuse disc bulge causing focal market narrowing of the left subarticular zone with placement posteriorly and compression of the transversing left L3 nerve root, moderate narrowing of the bilateral subarticular zones at L3-4 and bilateral foramina at L5-S1, status post posterior fusion, discectomy and laminectomy at L5-S1. Operations: None Procedures: None Summary of Care Provided: The patient is a 42 y/o M w/ PMHx: Morbid Obesity, Diabetes mellitus type II, HTN, HLD, Chronic back pain s/p surgical intervention who presented to the [facility] ED on 11/21/18 secondary to acute on chronic lumbar back pain w/ LLE radiculopathy. ED evaluation w/ CT A/P without contrast revealed no evidence of acute intra-abdominal pathology, revealed degenerative changes of the thoracolumbar spine most marked at L4-L5 with mild spinal stenosis and prior L4- L5 fusion and L5 laminectomy, maintain on fall precautions, frequent positionin g, po/IV pain regimen, flexeril PRN, IV decadron, add scheduled Toradol x 5 doses, added low dose gabapentin per discussion with patient, anti-emetics, add bowel regimen. PT and OT followed. MRI Lumbar Spine obtained w/ L2-3 left paracentral disc extrusion with inferior migration superimposed upon a diffuse disc bulge causing focal market narrowing of the left subarticular zone with placement posteriorly and compression of the transversing left L3 nerve root, moderate narrowing of the bilateral subarticular zones at L3-4 and bilateral foramina at L5-S1, status post posterior fusion, discectomy and laminectomy at L5-S1. Notable findings per discussion with patient and family following case management evaluation for transfer options patient accepted [facility] per medicine service with neurosurgery aware and reviewed findings of MRI. Patient discharged to tertiary facility for neurosurgery evaluation in stable condition however ongoing severe discomfort with left-sided radiculopathy despite interventions as noted. DAY OF DISCHARGE PROGRESS NOTE: Subjective: The patient has ongoing back pain lumbar region and radiculopathy to the LLE. He notes prior he had issues with his RLE with the radiculopathy. He and his notes his neurosurgeon has long since retired. Discussed plan of care and patient noted in the past had tried Lyrica with some lower extremity edema and no clinical effect but is willing to trial gabapentin. Patient also notes no recent bowel movement since worsened pain and decreased mobility. Patient denies fevers, chills, nausea, emesis, abdominal pain, chest pain or dyspnea. Amenable to transition to tertiary facility if MRI results notable with compression as noted above. Objective: T 98.3, heart rate 83, BP 129/92, respiratory rate 18, 93% on room air. Physical Examination: General: awake, alert, oriented x 3 and cooperative, seated upright in bed appears uncomfortable, mild grimace noted. Skin: normal color, turgor, no icterus, cyanosis. HEENT: AT/NC, EOMI, PERRLA, MMM. Lungs: CTA bilaterally, moderate effort, mild decrease BL bases, no rales, ronchi or wheezing. Heart: Regular rate and rhythm; no gallop, rub audible. Abdomen: soft, morbidly obese, NTTP, ND, mildly decreased BS. Extremities: no cyanosis, clubbing, or edema. Neurological: patient awake, alert, oriented x 3; cognitive function intact; pupils equally reactive to light and accomodation; cranial nerves II-XII grossly normal, moving all 4 extremities but limited movement given intractable lumbar back pain, + SLR BL, sensation intact, TTP paraspinous regions, strength accordingly severe globally decreased, no focal deficits or sensation deficits. Psychiatric: affect appears fatigued, strained, no acute evidence of depressive or anxiety feelings. Assessment and Plan: Please see hospital summary above. Patient Problems: Active and Suspected Problems Intractable low back pain (Acute) - Physical Exam Vital Signs Temp Pulse Resp BP Pulse Ox 98.3 F 83 18 129/92 H 93 11/22/18 07:56 11/22/18 07:56 11/22/18 07:56 11/22/18 07:56 11/22/18 07:56 Oxygen Delivery Method Room Air Weight: 326 lb 8.073 oz Body Mass Index (BMI) 41.9 Intake and Output for Last 24 Hours 11/20/18 11/21/18 11/22/18 23:59 23:59 23:59 Intake Total 725 / 725 1273 / 1273 Output Total 500 / 500 Balance 725 / 725 773 / 773 Laboratory Tests Past 24 Hrs 11/21/18 11/21/18 11/22/18 13:00 13:00 05:30 WBC 11.6 H 10.7 RBC 6.02 5.64 Hgb 18.2 H* 16.9 H Hct 52.9 50.5 MCV 87.9 89.5 MCH 30.2 30.0 MCHC 34.4 33.5 RDW 13.7 13.8 RDW Differential 44.3 H 45.8 H Plt Count 327 307 MPV 10.0 9.9 Immature Gran % (Auto) 0.300 0.300 Neut % (Auto) 70.6 H 78.8 H Lymph % (Auto) 18.2 L 14.1 L Garvin % (Auto) 8.8 6.5 Eos % (Auto) 1.5 0.1 Baso % (Auto) 0.6 0.2 Absolute Neuts (auto) 8.2 H 8.4 H Absolute Lymphs (auto) 2.10 1.51 Total Counted Not Reportable Not Reportable Sodium 136 Potassium 3.9 Chloride 104 Carbon Dioxide 25.0 Anion Gap 7 BUN 13 Creatinine 0.88 Estim Creat Clear Calc 124.55 Est GFR (MDRD) Af Amer 121 Est GFR (MDRD) Non-Af 100 BUN/Creatinine Ratio 14.8 Glucose 152 H Calcium 8.8 POC Glucose 11/22/18 11/21/18 11/21/18 06:45 21:25 16:29 POC Glucose 193 H 202 H 146 H Home Medications: Medications to take at Discharge Atorvastatin Calcium [Lipitor] 10 mg PO QHS 11/21/18 Exenatide [Aruna ([facility])] 11/21/18 Lisinopril/Hydrochlorothiazide [Lisinopril-Hctz 20-25 mg Tab] 1 tab PO DAILY 11/21/18 Metformin HCl [Metformin ER Gastric] 1,000 mg PO DAILY 11/21/18 MethylPREDNISolone DosePak [Medrol DosePak] 4 mg PO UD #1 box 11/21/18 Naproxen [Naprosyn] 500 mg PO BID PRN #20 tab 11/21/18 Oxycodone HCl/Acetaminophen [Percocet 5/325] 1 tab PO Q6H PRN PRN 3 Days #12 tab 11/21/18 Sitagliptin Phos/Metformin HCl [Janumet 50-1,000 MG Tablet] 1 each PO DAILY 11/21/18 Following Prescrptions Were Given to Patient: Oxycodone HCl/Acetaminophen [Percocet 5/325] 1 tab PO Q6H PRN PRN 3 Days #12 tab PRN Reason: Pain MethylPREDNISolone DosePak [Medrol DosePak] 4 mg PO UD #1 box Naproxen [Naprosyn] 500 mg PO BID PRN #20 tab Primary Care Physician: Tram Stnoer PA [Primary Care Provider] - Patient Instructions: ED Sciatica Disposition: Acute care Hospital Minutes spent on discharge:: 35 Patient Condition:: Stable Medical Necessity - Tobacco Use Smoking Status: Current every day smoker Tobacco Use: Cigarettes Meaningful Use Info Meaningful Use Diagnoses (Choose all that apply): None applicable Code Visit Inpatient E&M: 76100 Disch Hosp
[2018-11-22 12:45] LABS: Bedside Glucose 240 mg/dL (70-110)
[2018-11-22 13:17] VITALS: BP 114/77; PULSE 64; RESP 18; TEMP 37.1; O2SAT 100
--- NOTE | 2018-11-22 13:53 | NURSING ---
report called to Ana LOPEZ at [facility] at [phone] bed [id number]
== END 2018-11-22 14:30 | disposition short-term general hospital (02) ==
LOC: ED 14:05 → MS3 15:20
PROVIDERS: Admitting Provider Hospitalist; Emergency Provider Emergency Medicine; Family Provider Physician Assistant; PCP Physician Assistant; Referring Provider Hospitalist; Visit Provider Family Medicine
DX: M54.5 Low back pain (principal); I10 Essential (primary) hypertension; E78.5 Hyperlipidemia, unspecified; E66.01 Morbid (severe) obesity due to excess calories; Z68.41 Body mass index [BMI] 40.0-44.9, adult; Z71.3 Dietary counseling and surveillance; M54.10 Radiculopathy, site unspecified; Z79.899 Other long term (current) drug therapy; Z79.84 Long term (current) use of oral hypoglycemic drugs; G89.29 Other chronic pain; F17.210 Nicotine dependence, cigarettes, uncomplicated; E86.0 Dehydration; R60.0 Localized edema; E11.9 Type 2 diabetes mellitus without complications
CPT/HCPCS: 36415; 72148; 74176; 80048; 82962; 85025; 96361; 96372; 96374; 96375; 96376; 97802; 99218; 99285; J7030; A4216; G0378; J2405

== ENCOUNTER → 2023-02-21 | Outpatient (CLI) | payer BC, SELFPAY ==
[2023-02-21 08:33] LABS: Absolute Lymphocyte Count 3.29 X10^3/uL (0.83-4.51); Absolute Neutrophil Count 4.8 X10^3/uL (2.0-7.7); Basophil# 0.09 X10^3/uL; Basophil% 0.9 % (0-1); Eosinophil# 0.27 X10^3/uL; Eosinophils% 2.8 % (0-5); Hematocrit 50.3 % (40-54); Hemoglobin 17.1 g/dL (13.0-16.5); Lymphocyte # 3.29 X10^3/ul (0.83-4.51); Lymphocyte % 34.3 % (19-41); Mean Corpuscular Volume 91.1 fL (80-94); Mean Platelet Vol. 9.4 fl (6.2-12.0); Monocyte# 1.13 X10^3/uL; Monocyte% 11.8 % (0-10); NRBC Flagged by Analyzer 0 % (0-5); Neutrophil # 4.77 X10^3/uL (2.7-7.7); Neutrophil % 49.8 % (47-70); Platelet Count 303 K/mm3 (150-450); RBC Distribution Width CV 13.2 % (11.6-14.6); Red Blood Count 5.52 M/mm3 (4.6-6.2); White Blood Count 9.6 K/mm3 (4.4-11.0)
[2023-02-21 08:59] LABS: ALB/GLOB Ratio 0.9 RATIO (0.9-2.4); AST(SGOT) 32 U/L (15-37); Alanine Aminotransfer ALT/SGPT 64 U/L (16-61); Albumin, Serum 3.5 g/dL (3.2-5.0); Alkaline Phosphatase 69 U/L (45-117); Anion Gap -1 (5-15); BUN 13 mg/dL (7-18); Calcium,Total 8.8 mg/dL (8.5-10.1); Chloride 106 mmol/L (98-107); Cholesterol 107 mg/dL (200); Creatinine, Serum 0.87 mg/dL (0.70-1.30); EST Glomerular Filtration Rate 100 mL/min (>60); Est Glom Filt Rate - Afr Amer 121 mL/min (>60); Globulin 3.7 g/dL (2.2-4.2); Glucose 127 mg/dL (74-106); High Density Lipoprotein 34 mg/dL; Potassium 4.8 mmol/L (3.5-5.1); Protein, Total 7.2 g/dL (6.4-8.2); Sodium Level 135 mmol/L (136-145); Triglycerides 96 mg/dL; Very Low Density Lipoprotein 19 mg/dL (5-40)
== END | disposition home or self-care (01) ==
LOC: LAB 08:02
PROVIDERS: PCP Family Medicine; Referring Provider Family Medicine; Visit Provider Family Medicine
DX: Z00.00 Encounter for general adult medical examination without abnormal findings (principal)
CPT/HCPCS: 36415; 80053; 80061; 85025

== ENCOUNTER → 2024-03-04 | Outpatient (CLI) | payer BC, SELFPAY ==
[2024-03-04 12:50] LABS: Absolute Lymphocyte Count 3.67 X10^3/uL (0.83-4.51); Absolute Neutrophil Count 4.7 X10^3/uL (2.0-7.7); Basophil# 0.08 X10^3/uL; Basophil% 0.8 % (0-1); Eosinophil# 0.28 X10^3/uL; Eosinophils% 2.9 % (0-5); Hematocrit 52.1 % (40-54); Hemoglobin 17.1 g/dL (13.0-16.5); Lymphocyte # 3.67 X10^3/ul (0.83-4.51); Lymphocyte % 37.6 % (19-41); Mean Corp Hgb Conc 32.8 g/dL (32-36); Mean Corpuscular Volume 91.4 fL (80-94); Mean Platelet Vol. 10.1 fl (6.2-12.0); Monocyte# 1.02 X10^3/uL; Monocyte% 10.4 % (0-10); NRBC Flagged by Analyzer 0 % (0-5); Neutrophil # 4.68 X10^3/uL (2.7-7.7); Neutrophil % 47.9 % (47-70); Platelet Count 323 K/mm3 (150-450); RBC Distribution Width CV 13.2 % (11.6-14.6); RBC Distribution Width SD 44.8 fl (35.1-43.9); White Blood Count 9.8 K/mm3 (4.4-11.0)
[2024-03-04 13:27] LABS: Hemoglobin A1c 7.9 % (3.8-5.6)
[2024-03-04 13:50] LABS: ALB/GLOB Ratio 1.1 RATIO (0.9-2.4); AST(SGOT) 31 U/L (15-37); Alanine Aminotransfer ALT/SGPT 61 U/L (16-61); Albumin, Serum 3.7 g/dL (3.2-5.0); Alkaline Phosphatase 77 U/L (45-117); Anion Gap 5 (5-15); BUN 14 mg/dL (7-18); BUN/Creat Ratio 17.2 RATIO (10-20); Calcium,Total 9.3 mg/dL (8.5-10.1); Chloride 103 mmol/L (98-107); Cholesterol 117 mg/dL (200); Creatinine, Serum 0.82 mg/dL (0.70-1.30); EST Glomerular Filtration Rate 106 mL/min (>60); Est Glom Filt Rate - Afr Amer 129 mL/min (>60); Globulin 3.5 g/dL (2.2-4.2); Glucose 151 mg/dL (74-106); High Density Lipoprotein 31 mg/dL; PSA,Total - Annual Screen 1.66 ng/mL (0.00-4.00); Potassium 4.7 mmol/L (3.5-5.1); Protein, Total 7.2 g/dL (6.4-8.2); Sodium Level 136 mmol/L (136-145); Triglycerides 115 mg/dL; Very Low Density Lipoprotein 23 mg/dL (5-40)
[2024-03-04 14:06] LABS: Microalbumin,Random Urine 15.3 mg/L (NO RANGE EST.); Microalbumin:Creatinine Ratio 6.2 mg/g CRE (<30 mg/g CRE)
== END | disposition home or self-care (01) ==
LOC: BFHLAB 08:10
PROVIDERS: PCP Family Medicine; Referring Provider Family Medicine; Visit Provider Family Medicine
DX: Z00.00 Encounter for general adult medical examination without abnormal findings (principal); E11.9 Type 2 diabetes mellitus without complications; Z12.5 Encounter for screening for malignant neoplasm of prostate
CPT/HCPCS: 36415; 80053; 80061; 82043; 82570; 83036; 84153; 85025; G0103

== ENCOUNTER → 2025-09-04 | Outpatient (CLI) | payer OTHER, SELFPAY ==
[2025-09-04 12:13] LABS: Hematocrit 50.8 % (40-54); Hemoglobin 17.3 g/dL (13.0-16.5); Immature Granulocytes Count 0.050 X10^3/uL (0.0-0.0); Mean Corp Hgb Conc 34.1 g/dL (32-36); Mean Corpuscular Volume 91.5 fL (80-94); Mean Platelet Vol. 9.5 fl (6.2-12.0); NRBC Flagged by Analyzer 0 % (0-5); Platelet Count 324 K/mm3 (150-450); RBC Distribution Width CV 13.4 % (11.6-14.6); RBC Distribution Width SD 46.4 fl (35.1-43.9); Red Blood Count 5.55 M/mm3 (4.6-6.2); White Blood Count 10.4 K/mm3 (4.4-11.0)
[2025-09-04 12:55] LABS: Creatinine, Urine (random) 208.00 mg/dL (39.00-259.00); Microalbumin,Random Urine 25.3 mg/L (<20 mg/L)
[2025-09-04 13:10] LABS: AST(SGOT) 19 U/L (<=37); Alanine Aminotransfer ALT/SGPT 20 U/L (<=46); Albumin, Serum 4.3 g/dL (3.5-5.0); Alkaline Phosphatase 66 U/L (40-129); Anion Gap 10 (5-15); BUN 14 mg/dL (4-19); BUN/Creat Ratio 17.8 RATIO (10-20); Calcium,Total 9.8 mg/dL (7.6-11.0); Carbon Dioxide 26.8 mmol/L (21.0-32.0); Chloride 102 mmol/L (98-108); Cholesterol 132 mg/dL (<=200); Globulin 3.1 g/dL (2.2-4.2); Glucose 106 mg/dL (70-99); Low Density Lipoprotein Calc. 78 mg/dL; PSA,Total - Annual Screen 2.03 ng/mL (0.02-4.00); Potassium 4.6 mmol/L (3.3-5.1); Triglycerides 111 mg/dL; Very Low Density Lipoprotein 22 mg/dL (5-40); cholesterol:hdl ratio screen 3.94
== END | disposition home or self-care (01) ==
LOC: BFHLAB 08:38
PROVIDERS: PCP Family Medicine; Visit Provider Family Medicine
DX: Z00.00 Encounter for general adult medical examination without abnormal findings (principal); E11.9 Type 2 diabetes mellitus without complications; Z12.5 Encounter for screening for malignant neoplasm of prostate
CPT/HCPCS: 36415; 80053; 80061; 82043; 82570; 84153; 85025; G0103